=== PATIENT | female | born 1995 | race African-American/Black ===

== ENCOUNTER 2016-08-03 10:58 | Emergency (ER) | payer SELFPAY ==
[~2016-08-03] VITALS: Ht 152.4 cm; Wt 54.5 kg
[2016-08-03 10:59] VITALS: BP 145/94; PULSE 110; RESP 20; TEMP 98.8; O2SAT 97
--- NOTE | 2016-08-03 11:16 | PD ---
Physical Exam Date Seen by Provider: Aug 03, 2016 Time Seen by Provider: 11:21 Data Data Last Documented VS Vital Signs Date Time Temp Pulse Resp B/P Pulse Ox O2 Delivery O2 Flow Rate FiO2 08/03/16 10:59 98.8 110 20 145/94 97 Room Air MDM Supervised Visit with WHIT: No Narrative Course 20 YO female requesting [employer] check up. Complains of chronically heavy periods. Vitals reviewed. Patient awaiting bed placement. Hellen Hoskins Aug 03, 2016 11:16
--- NOTE | 2016-08-03 12:20 | PD ---
HPI Chief Complaint: Financial Project Manager Problem/Complaint Time Seen by Provider: 12:10 Travel History International Travel<30 days: No Contact w/Intl Traveler<30days: No Traveled to known affect area: No History of Present Illness HPI This patient was examined in the presence of a female nurse at all times. 20-year-old female presents for evaluation. She has been having some foul- smelling vaginal discharge for 2 months. She would like to be tested for STDs and "anything else that could be wrong with me." She reports that she has been sexually active with 2 different partners in the past year, has not been sexually active in the past 3 months. She is currently on her menstrual period. She denies any abdominal pain, nausea or vomiting, flank pain, dysuria , hematuria. No other complaints. PFSH Past Medical History Medical History: Denies Significant Hx Hx Anticoagulant Therapy: No Cardiovascular Problems: No Chemotherapy: No Cerebrovascular Accident: No Diabetes: No Diminished Hearing: No Respiratory: No Tetanus Vaccination: Unknown Influenza Vaccination: No ?: Not LMP: 08/02/16 Past Surgical History Surgical History: No Previous Surgery Hysterectomy: No Social History Alcohol Use: No Tobacco Use: No Substance Use: No Allergies-Medications (Allergen,Severity, Reaction): Coded Allergies: No Known Allergies (Unverified , 08/03/16) Reported Meds & Prescriptions Reported Meds & Active Scripts Active No Active Prescriptions or Reported Medications Review of Systems Except as stated in HPI: all other systems reviewed are Neg Physical Exam Narrative Examined in the presence of a female nurse at all times. GENERAL: Well-nourished female in no acute distress SKIN: Warm and dry. HEAD: Atraumatic. Normocephalic. CARDIOVASCULAR: Regular rate and rhythm. No murmur appreciated. RESPIRATORY: No accessory muscle use. Clear to auscultation. Breath sounds equal bilaterally. GASTROINTESTINAL: Abdomen soft, non-tender, nondistended. Hepatic and splenic margins not palpable. Pelvic examination performed in the presence of a female nurse: Small amount of blood noted in the vaginal canal consistent with history of menstruation. There is no abnormal discharge. Normal external genitalia. There is no cervical motion tenderness, no adnexal tenderness. MUSCULOSKELETAL: No obvious deformities. No clubbing. No cyanosis. No edema. NEUROLOGICAL: Awake and alert. No obvious cranial nerve deficits. Motor grossly within normal limits. Normal speech. Data Data Last Documented VS Vital Signs Date Time Temp Pulse Resp B/P Pulse Ox O2 Delivery O2 Flow Rate FiO2 08/03/16 10:59 98.8 110 20 145/94 97 Room Air Orders Gc And Chlamydia Pcr (08/03/16 12:18) Wet Prep Profile (08/03/16 12:18) Ed Urine Pregnancytest Poc (08/03/16 12:18) Azithromycin Powd Pack (Zithromax Powd P (08/03/16 12:45) Ceftriaxone Inj (Rocephin Inj) (08/03/16 12:45) Lidocaine 1% Inj (50 Ml) (Xylocaine 1% I (08/03/16 12:45) Labs Laboratory Tests Test 08/03/16 12:30 Clue Cells (Wet Prep) NONE SEEN Vaginal Trichomonas (Wet Prep) NONE SEEN Vaginal Yeast (Wet Prep) NONE SEEN MDM Medical Decision Making Medical Screen Exam Complete: Yes Emergency Medical Condition: Yes Medical Record Reviewed: Yes Differential Diagnosis Normal examination, BV, vaginitis, cervicitis, pelvic inflammatory disease, trichomoniasis Narrative Course This is a 20-year-old female who has been having foul-smelling vaginal discharge for 2 months. A wet prep, Chlamydia gonorrhea probe was performed. A urine was performed and it was negative. The patient was given azithromycin and Rocephin pending Chlamydia/gonorrhea results. The left prep was negative. The patient is stable for discharge. Diagnosis Primary Impression: Vaginal discharge Referrals: Primary Care Physician [facility]. Additional Instructions: Follow-up with [facility], primary care physician for routine STD testing. Return for any emergent medical conditions. Med/Other Pt SpecificInfo: No Change to Meds Scripts No Active Prescriptions or Reported Meds Disposition: 01 DISCHARGE HOME Condition: Stable Steve Powell Aug 03, 2016 12:20
[2016-08-03] MEDS ORDERED: cefTRIAXone 250 MG VIAL IM ONE (12:45)
[2016-08-03] MEDS ORDERED: LIDOCAINE HCL 1% 50 ML VIAL IM ONE (12:45)
[2016-08-03] MEDS ORDERED: AZITHROMYCIN PWD FOR SUSP 1 GM PACKET PO ONE (12:45)
[2016-08-03 15:10] LABS: CHLAMYDIA PCR NOT DETECTED (NOT DETECT); NEISSERIA PCR NOT DETECTED (NOT DETECT)
== END 2016-08-03 13:43 | disposition home or self-care (01) ==
LOC: NEPK 10:58
DX: N89.8 Other specified noninflammatory disorders of vagina (principal)
CPT/HCPCS: 84703; 87210; 87491; 87591; 96372; 99284; J0696

== ENCOUNTER 2016-09-19 13:37 | Emergency (ER) | payer SELFPAY ==
[2016-09-19 13:39] VITALS: BP 176/115; PULSE 120; RESP 20; TEMP 98.8; O2SAT 98
--- NOTE | 2016-09-19 14:06 | PD ---
Physical Exam Time Seen by Provider: 14:04 Narrative 20 y/o female here with a wound to the R hand sustained when a mirror fell on her hand. Vital signs reviewed. Seen at triage desk. Awaiting bed placement. Data Data Last Documented VS Vital Signs Date Time Temp Pulse Resp B/P Pulse Ox O2 Delivery O2 Flow Rate FiO2 09/19/16 13:39 98.8 120 20 176/115 98 Room Air MDM Medical Record Reviewed: Yes Supervised Visit with WHIT: No Scripts No Active Prescriptions or Reported Meds Steve Powell Sep 19, 2016 14:06
--- NOTE | 2016-09-19 15:08 | PD ---
HPI . right hand cut Chief Complaint: Laceration/Skin Injury Time Seen by Provider: 15:07 Travel History International Travel<30 days: No Contact w/Intl Traveler<30days: No Traveled to known affect area: No History of Present Illness HPI 20-year-old female here with complaints of cut to her right dorsum of her hand. Patient states that she was trying to lift the mirror when it accidentally slipped and cut the surface for hand. She is up-to-date on her tetanus shot. She has no specific complaints. She is able to move her extremity and was just concerned whether or not she would require sutures. PFSH Past Medical History Hx Anticoagulant Therapy: No Cardiovascular Problems: No Chemotherapy: No Cerebrovascular Accident: No Diabetes: No Diminished Hearing: No Respiratory: No Past Surgical History Hysterectomy: No Social History Alcohol Use: No Tobacco Use: No Substance Use: No Allergies-Medications (Allergen,Severity, Reaction): Coded Allergies: No Known Allergies (Unverified , 08/03/16) Reported Meds & Prescriptions Reported Meds & Active Scripts Active No Active Prescriptions or Reported Medications Review of Systems General / Constitutional: No: Fever Eyes: No: Visual changes HENT: No: Headaches Cardiovascular: No: Chest Pain or Discomfort Respiratory: No: Shortness of Breath Gastrointestinal: No: Abdominal Pain Genitourinary: No: Dysuria Musculoskeletal: No: Pain Skin: Positive Other (superficial cut to dorsum of right hand), No Rash Neurologic: No: Weakness Psychiatric: No: Depression Endocrine: No: Polydipsia Hematologic/Lymphatic: No: Easy Bruising Physical Exam Narrative GENERAL: AAO x 3, no acute distress, Well-nourished, well-developed patient. SKIN: Warm and dry. No visible rashes or bruising. 1.3 cm superficial abrasion to the dorsum of right hand, no deep tissue injury HEAD: Normocephalic and atraumatic. EYES: No scleral icterus. No injection or drainage. ENT: No nasal drainage noted. Mucous membranes pink. Airway patent. NECK: Supple, trachea midline. No JVD. CARDIOVASCULAR: Regular rate and rhythm without murmurs, gallops, or rubs. RESPIRATORY: Breath sounds equal bilaterally. No accessory muscle use. No rhonchi or rales. GASTROINTESTINAL:visual inspection normal EXTREMITIES: No cyanosis or edema. right hand distal radial and ulnar pulses normal, all digits move freely BACK: Nontender without obvious deformity. No CVA tenderness. 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 Data Data Last Documented VS Vital Signs Date Time Temp Pulse Resp B/P Pulse Ox O2 Delivery O2 Flow Rate FiO2 09/19/16 13:39 98.8 120 20 176/115 98 Room Air MDM Medical Decision Making Medical Screen Exam Complete: Yes Emergency Medical Condition: Yes Medical Record Reviewed: Yes Differential Diagnosis skin abrasion, laceration, less likely cellulitis Narrative Course 20 yr old female here with superficial abrasion to her skin. Patient gave consent to repair with steri strips. This wound did not require dermabond as it is small and very superficial. We discussed the signs of infection and when to return to the ED. Patient verbalized understanding of instructions, questions were answered, and thanked me for their care. I advised them if their condition worsens, please return to the nearest emergency room for further care. Procedures Procedure Narrative LACERATION LOCATION: dorsum of right hand LENGTH: 1.3 cm NUMBER OF STITCHES/WENDY: steri strip REPAIR: The area of the laceration was prepped with Betadine and sterilely draped. The wound was copiously irrigated. The wound was closed using steri strips. This was a single layer repair. A sterile dressing was applied. The patient was advised to keep the dressing clean and dry. Patient tolerated the procedure well. Diagnosis Primary Impression: Abrasion of skin Patient Instructions: General Instructions Additional Instructions: Keep area clean and dry. Watch for signs of infection: fever, redness, swelling, warmth, pus or drainage , red streaks around the cut, and increased pain from the area. If you received a tetanus shot, you may experience tenderness at the injection site. This is normal. The Steri-Strips will fall off by themselves. Med/Other Pt SpecificInfo: No Change to Meds Scripts No Active Prescriptions or Reported Meds Disposition: 01 DISCHARGE HOME Condition: Stable Shannen Fall Sep 19, 2016 15:07
== END 2016-09-19 15:36 | disposition home or self-care (01) ==
LOC: NEPK 13:37
DX: S60.511A Abrasion of right hand, initial encounter (principal); W25.XXXA Contact with sharp glass, initial encounter
CPT/HCPCS: 99282